=== PATIENT | male | born 1970 ===

== ENCOUNTER 2020-05-10 19:43 | Emergency (ER) | payer SELFPAY ==
[~2020-05-10] VITALS: Ht 180.3 cm; Wt 87.3 kg
[2020-05-10 20:02] VITALS: BP 139/70; Ht 180.3 cm; Wt 87.3 kg
[2020-05-10] MEDS ORDERED: AUGMENTIN 875-11 TAB PO (20:34)
== END 2020-05-10 21:31 | disposition home or self-care (01) ==
LOC: D.ER 19:43
DX: T14.8XXA Other injury of unspecified body region, initial encounter (principal); W54.0XXA Bitten by dog, initial encounter; Y93.9 Activity, unspecified; Y92.9 Unspecified place or not applicable